=== PATIENT | male | born 1955 | race Caucasian/White ===

== ENCOUNTER 2016-10-09 08:12 | Day surgery (SDC) | payer OTHER ==
[2016-10-02 11:55] LABS: HEMOGLOBIN 12.4 g/dL (13.6-17.8)
[2016-10-02 11:57] LABS: HEMATOCRIT 37.5 % (40.0-51.0)
[2016-10-02 12:19] LABS: BUN (BLOOD UREA NITROGEN) 22 MG/DL (6-23); CHLORIDE, SERUM 102 MMOL/L (96-112); CREATININE 1.17 MG/DL (0.70-1.30); GFR AFRICAN AMERICAN 78 ML/MIN (>=60); GFR NON AFRICAN AMERICAN 67 ML/MIN (>=60); GLUCOSE, SERUM 90 MG/DL (60-99); SODIUM, SERUM 141 MMOL/L (135-148)
[2016-10-02 12:20] LABS: CO2 (CARBON DIOXIDE) 29 MMOL/L (24-34); POTASSIUM, SERUM 3.8 MMOL/L (3.5-5.3)
[~2016-10-09 08:12] MED LIST: ASAB PO; FIORICET PO; FLONASE NAS; GOODY'S HEADAC1 EACH PO; HALF81 PO; IMDUR30 PO; KEPPRA1000 MG PO; LISINOPRIL40 MG PO; LOP50 PO; LOPID6 PO; MULTIPLE VIT PO; NASAL SPRAY NAS; NASAREL29 MCG NAS; NEUR300 PO; NITROQUICK0.4 MG SL; PAXIL40 MG PO; PLAVIX PO; PRIM50B PO; PRIN20 PO; PROAIR HFA INH; SLO-NIACIN500 MG PO; SPIRIVA INH; SYMBICORT 160/41 INH INH; T PO; VIMPAT100 MG PO; ZOCOR40 PO
[2016-11-28] MEDS ORDERED: SPIRIVA INH (09:08)
[2016-11-28] MEDS ORDERED: PLAVIX PO (09:12)
[2016-11-28] MEDS ORDERED: VIMPAT100 MG PO (09:13)
[2016-11-28] MEDS ORDERED: LIPITOR80 MG PO (09:14)
[2016-11-28] MEDS ORDERED: ACET500CAP PO (09:14)
[2016-11-28] MEDS ORDERED: GOODY'S EX-STR1 EAC1 PO (09:32)
== END 2016-10-09 13:40 | disposition home or self-care (01) ==
LOC: SDC 08:12
PROVIDERS: Ophthalmology
PROC: 08RK3JZ Replacement of Left Lens with Synthetic Substitute, Percutaneous Approach (ICD-10-PCS; principal; 2016-10-09 10:45)
DX: H25.12 Age-related nuclear cataract, left eye (principal); I25.10 Atherosclerotic heart disease of native coronary artery without angina pectoris; J44.9 Chronic obstructive pulmonary disease, unspecified; E78.00 Pure hypercholesterolemia, unspecified; R56.9 Unspecified convulsions; I10 Essential (primary) hypertension; G43.909 Migraine, unspecified, not intractable, without status migrainosus; Z88.8 Allergy status to other drugs, medicaments and biological substances; Z79.899 Other long term (current) drug therapy; Z98.890 Other specified postprocedural states
CPT/HCPCS: 80048; 85014; 85018; 93005; J0330; J2150; J2250; J2370; J2405; J3010

== ENCOUNTER 2016-12-04 08:20 | Day surgery (SDC) | payer OTHER ==
[2016-12-01 11:12] LABS: HEMOGLOBIN 14.5 g/dL (13.6-17.8)
[2016-12-01 11:15] LABS: HEMATOCRIT 42.3 % (40.0-51.0)
[2016-12-01 11:22] LABS: CALCIUM, SERUM 9.9 MG/DL (8.5-10.4); CHLORIDE, SERUM 109 MMOL/L (96-112); CREATININE 1.19 MG/DL (0.70-1.30); GFR AFRICAN AMERICAN 76 ML/MIN (>=60); GFR NON AFRICAN AMERICAN 66 ML/MIN (>=60); GLUCOSE, SERUM 95 MG/DL (60-99); POTASSIUM, SERUM 4.2 MMOL/L (3.5-5.3); SODIUM, SERUM 142 MMOL/L (135-148)
[2016-12-01 11:23] LABS: BUN (BLOOD UREA NITROGEN) 18 MG/DL (6-23); CO2 (CARBON DIOXIDE) 23 MMOL/L (24-34)
[~2016-12-04 08:20] MED LIST changes: +ACET500CAP PO; +GOODY'S EX-STR1 EAC1 PO; +LIPITOR80 MG PO
== END 2016-12-04 14:44 | disposition home or self-care (01) ==
LOC: SDC 08:20
PROVIDERS: Ophthalmology
PROC: 08RJ3JZ Replacement of Right Lens with Synthetic Substitute, Percutaneous Approach (ICD-10-PCS; principal; 2016-12-04 10:45)
DX: H25.11 Age-related nuclear cataract, right eye (principal); I10 Essential (primary) hypertension; J44.9 Chronic obstructive pulmonary disease, unspecified; F17.210 Nicotine dependence, cigarettes, uncomplicated; G40.909 Epilepsy, unspecified, not intractable, without status epilepticus; Z88.6 Allergy status to analgesic agent; Z95.5 Presence of coronary angioplasty implant and graft; Z98.890 Other specified postprocedural states
CPT/HCPCS: 80048; 85014; 85018; 93005; J2250; J2405; J3010; V2787